=== PATIENT | male | born 1960 | race American Indian/Alaskan Native ===

== ENCOUNTER 2016-08-12 03:42 | Emergency (ER) | payer OTHER ==
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
[2016-08-12 05:46] VITALS: BP 158/78; PULSE 54; RESP 18; TEMP 97.7
[2016-08-12 05:56] VITALS: O2SAT 96
--- NOTE | 2016-08-12 08:50 | RAD ---
PROCEDURE: Radiographs of the Right Shoulder HISTORY: PAIN, INJURY COMPARISON: No prior. FINDINGS: BONES: Normal. No fracture. JOINTS: Preserved glenohumeral relationship, acromioclavicular degenerative change: Mild. SOFT TISSUES: Normal. OTHER FINDINGS: None. IMPRESSION: No acute findings related to/accounting for the clinical presentation. Concordant results with the preliminary interpretation rendered by the emergency department physician procedure.
== END 2016-08-12 05:48 | disposition home or self-care (01) ==
LOC: C.ER 03:42
DX: S43.401A Unspecified sprain of right shoulder joint, initial encounter (principal); Y04.0XXA Assault by unarmed brawl or fight, initial encounter; Y93.89 Activity, other specified; Y92.89 Other specified places as the place of occurrence of the external cause
CPT/HCPCS: 73030; 96372; 99285; J1885

== ENCOUNTER 2016-11-17 05:18 | Emergency (ER) | payer OTHER ==
[2016-11-17] MEDS ORDERED: Sodium Chloride 0.9% 1,000 ML IV ONE (05:56)
[2016-11-17] MEDS ORDERED: Sucralfate 1 gm/10 ml Oral Susp UD PO STA (05:57)
[2016-11-17] MEDS ORDERED: Iohexol 240 (50 ml) PO ONE (05:58)
--- NOTE | 2016-11-17 06:01 | C.PDOC ---
History Of Present Illness <Delroy Back R - Last Filed: 11/17/16 06:01> <ArlettejakeDoe E - Last Filed: 11/17/16 10:12> 56 year old male who presents to the ER with a complaint of a scattered diffuse abdominal pain, associated with nausea that began tonight. Denies vomiting, diarrhea, or dysuria. (Delroy Back) History Per: Patient History/Exam Limitations: no limitations Onset/Duration Of Symptoms: Hrs Current Symptoms Are (Timing): Still Present Radiation Of Pain To:: None Quality Of Discomfort: Unable To Describe Associated Symptoms: Nausea. denies: Vomiting, Diarrhea, Urinary Symptoms Exacerbating Factors: None Alleviating Factors: None Recent travel outside of the [place]: No <Delroy Back - Last Filed: 11/17/16 06:01> <Doe Alan E - Last Filed: 11/17/16 10:12> Chief Complaint (Nursing): Abdominal Pain Past Medical History Reviewed: Historical Data, Nursing Documentation, Vital Signs - Medical History PMH: Asthma, Bronchitis, HTN, Hypercholesterolemia Surgical History: No Surg Hx Family History: States: Unknown Family Hx - Social History Hx Tobacco Use: Yes Hx Alcohol Use: No Hx Substance Use: No - Immunization History Hx Tetanus Toxoid Vaccination: No Hx Influenza Vaccination: Yes (2015) Hx Pneumococcal Vaccination: No <Delroy Back - Last Filed: 11/17/16 06:01> Review Of Systems Constitutional: Negative for: Fever, Chills Gastrointestinal: Positive for: Nausea, Abdominal Pain. Negative for: Vomiting , Diarrhea Genitourinary: Negative for: Dysuria, Incontinence, Hematuria <Delroy Back - Last Filed: 11/17/16 06:01> Physical Exam - Physical Exam Appears: Non-toxic, Other (Mild distress) Skin: Normal Color, Warm, Dry Head: Atraumatic, Normacephalic Oral Mucosa: Moist Chest: Symmetrical, No Tenderness Cardiovascular: Rhythm Regular, No Murmur Respiratory: Normal Breath Sounds, No Rales, No Rhonchi, No Wheezing Gastrointestinal/Abdominal: Soft, Tenderness (Mid epigastric), No Guarding, No Rebound Neurological/Psych: Oriented x3, Normal Speech, Normal Cognition <Delroy Back - Last Filed: 11/17/16 06:01> ED Course And Treatment O2 Sat by Pulse Oximetry: 100 (Room air) Pulse Ox Interpretation: Normal Progress Note: CT abd/pel, blood work, and urinalysis ordered. Pepcid, carafate , and IV fluids administered. <Delroy Back - Last Filed: 11/17/16 06:01> - Laboratory Results Result Diagrams: 11/17/16 06:11 11/17/16 06:11 - CT Scan/US CT abd/pelvis Other Rad Studies (CT/US): Read By Radiologist, Radiology Report Reviewed CT/US Interpretation: IMPRESSION: 1. Questionable acute appendicitis. The appendix is present in the right lower quadrant abdomen lying lateral to a cecal bascule, seen on. images 108 through 122 of series 3. The appendix is enlarged with gas and fluid present within the. appendix. The distal tip of the appendix is seen on image 110 of series 3 measuring 10.1 mm in. overall diameter with a wall thickness of 4.3 mm. No marked periappendiceal inflammatory change or. fluid. No periappendiceal abscess or evidence of appendiceal rupture. 2. The cecal bascule lies in the midline low abdomen with questionable mild hypodense mucosal. thickening of the proximal large bowel involving the cecum, ascending, transverse and proximal. descending colonic segments suggestive of acute colitis versus underdistended large bowel giving. the artifactual appearance of mucosal thickening. No evidence of megacolon or colonic perforation. No evidence of significant ileus or bowel. obstruction. The small bowel appears grossly normal. 3. Questionable edema and/or inflammatory change present to a minimal degree in the. peripancreatic fat planes surrounding the atrophic and partially fatty-replaced pancreas. The. questionable edema and/or inflammatory change could be an artifact from volume averaging of the. atrophic pancreatic low ocasio with the surrounding fat. Recommend clinical correlation, however, for. any lab signs of acute pancreatitis. 4. A tiny periumbilical midline ventral hernia is present, containing fat only. Progress Note: Pt was signed out to me at 7am by Dr. Back to f/up CT abdomen/ pelvis. Pt feels much better. Abdominal pain resolved. Reassessment Condition: Improved <Doe Alan E - Last Filed: 11/17/16 10:12> Disposition <Delroy Back - Last Filed: 11/17/16 06:01> Discussed With DrFrancisco: Kaitlin Nickerson Comment: Pt was evaluated by the surgery resident who d/w Dr. Nickerson. They do not believe pt has acute appendicitis or any other surgical emergency and are recommending pt to be discharged home. Counseled Patient/Family Regarding: Studies Performed, Diagnosis, Need For Followup, Rx Given - Disposition Disposition Time: 10:10 <Doe Alan E - Last Filed: 11/17/16 10:12> - Disposition Referrals: Geronimo Mckeon MD [Primary Care Provider] - Disposition: HOME/ ROUTINE Condition: IMPROVED Additional Instructions: Follow up with your doctor within 1 week for further evaluation and treatment. Return to the ER if you develop fever, vomiting, pain in right lower side, worsening of symptoms or if you have any other concerns. Prescriptions: Famotidine [Pepcid] 20 mg PO BID #30 tab Instructions: Acute Abdominal Pain (ED) Forms: [employer] (Kyrgyz) - Clinical Impression Clinical Impression: Abdominal pain - Scribe Statement The provider has reviewed the documentation as recorded by the Scribe <Delroy Back - Last Filed: 11/17/16 06:01> <Doe Alan E - Last Filed: 11/17/16 10:12> - Scribe Statement Andrew Mcnamara All medical record entries made by the Scribe were at my direction and personally dictated by me. I have reviewed the chart and agree that the record accurately reflects my personal performance of the history, physical exam, medical decision making, and the department course for this patient. I have also personally directed, reviewed, and agree with the discharge instructions and disposition. (Delroy Back)
[2016-11-17] MEDS ORDERED: Sodium Chloride 0.9% 1,000 ML ONE (06:14)
[2016-11-17 06:15] LABS: BASO # 0.1 K/uL (0.0-0.2); BASO % 0.9 % (0.0-2.0); EOS # 0.2 K/uL (0.0-0.7); EOS % 2.3 % (0.0-4.0); HEMATOCRIT 36.2 % (35.0-51.0); LYMPH % 50.3 % (20.0-40.0); MEAN CORPUSCULAR HEMOGLOBIN 31.4 pg (27.0-31.0); MEAN CORPUSCULAR HGB CONC 33.1 g/dL (33.0-37.0); MONO # 0.7 K/uL (0.0-0.8); MONO % 8.8 % (0.0-10.0); NRBC % 0.1 % (0.0-2.0); RED CELL DISTRIBUTION WIDTH 14.4 % (11.5-14.5); WHITE BLOOD COUNT 7.9 K/uL (4.8-10.8)
[2016-11-17] MEDS ORDERED: Iohexol 240 (50 ml) ONE (06:15)
[2016-11-17 06:17] LABS: RBC URINE 2 /hpf (0-3); URINE BILIRUBIN NEGATIVE (NEGATIVE); URINE BLOOD NEGATIVE (NEGATIVE); URINE COLOR Yellow (YELLOW); URINE GLUCOSE (UA) NORMAL (Normal); URINE KETONE NEGATIVE (NEGATIVE); URINE LEUKOCYTE ESTERASE NEG Leu/uL (Negative); URINE PROTEIN NEGATIVE (NEGATIVE); URINE UROBILINOGEN NORMAL mg/dL (0.2-1.0); WBC URINE < 1 /hpf (0-5)
[2016-11-17 06:34] LABS: ALB/GLOB RATIO 1.5 (1.0-2.1); ALKALINE PHOSPHATASE 98 U/L (38-126); ALT/SGPT 33 U/L (21-72); AST/SGOT 28 U/L (17-59); BILIRUBIN,TOTAL 0.7 mg/dL (0.2-1.3); BLOOD UREA NITROGEN 13 mg/dL (9-20); CARBON DIOXIDE 25 mmol/L (22-30); CHLORIDE 102 mmol/L (98-107); GFR AFRICAN-AMERICAN > 60; GLUCOSE,RANDOM 104 mg/dL (75-110); POTASSIUM 3.8 mmol/L (3.6-5.2); SODIUM 137 mmol/L (132-148); TOTAL PROTEIN 6.8 g/dL (6.3-8.3)
[2016-11-17] MEDS ORDERED: Iodixanol 320 MG/ML 100 ML BOTTLE IV ONE (07:35)
[2016-11-17 10:15] VITALS: BP 152/90; PULSE 59; RESP 16; TEMP 98.2; O2SAT 100
--- NOTE | 2016-11-17 12:18 | CP.PCM.CON ---
History of Present Illness - History of Present Illness History of Present Illness: Surgery: Dr. Nickerson CC: muscle cramps HPI: Patient is a 56 y/o male w/ pmhx of HLD and asthma presents complaining of muscle cramping and abdominal pain since yesterday afternoon. 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 He reports limited po fluid intake. He then states the cramp progressed to his arms then had muscle cramps in his abdomen. He states he felt them more on the right then the left. He denies f/c/n/v. ED: Per report, patient had point tenderness in the RLQ on exam prompting CT scan. Patient given IV fluids and PEpcid in ED with resolution of symptoms. PMHx: HLD, asthma, rotator cuff pain left shoulder PSH: denies Social: hx of etoh, tobacco and drug use but states he no longer uses any of them Review of Systems - Review of Systems All systems: reviewed and no additional remarkable complaints except Review of Systems: unless stated in HPI Past Patient History - Infectious Disease Hx of Infectious Diseases: None - Past Social History Smoking Status: Former Smoker - CARDIAC Hx Hypercholesterolemia: Yes Hx Hypertension: Yes - PULMONARY Hx Asthma: Yes Hx Bronchitis: Yes - NEUROLOGICAL Hx Neurological Disorder: No - HEENT Hx HEENT Problems: No - RENAL Hx Chronic Kidney Disease: No - ENDOCRINE/METABOLIC Hx Endocrine Disorders: No - HEMATOLOGICAL/ONCOLOGICAL Hx Blood Disorders: No - INTEGUMENTARY Hx Dermatological Problems: No - MUSCULOSKELETAL/RHEUMATOLOGICAL Hx Musculoskeletal Disorders: No - GASTROINTESTINAL Hx Gastrointestinal Disorders: No - GENITOURINARY/GYNECOLOGICAL Hx Genitourinary Disorders: No - PSYCHIATRIC Hx Substance Use: No - SURGICAL HISTORY Hx Surgeries: No Hx Cardiac Catheterization: Yes (Mar 2014) - ANESTHESIA Hx Anesthesia: No Hx Anesthesia Reactions: No Meds Home Medications: Home Medication List Medication Instructions Recorded Confirmed Type Famotidine [Pepcid] 20 mg PO BID #30 tab 11/17/16 Rx Allergies/Adverse Reactions: Allergies Allergy/AdvReac Type Severity Reaction Status Date / Time No Known Allergies Allergy Verified 11/17/16 05:29 Physical Exam - Constitutional Appears: Non-toxic, No Acute Distress - Head Exam Head Exam: ATRAUMATIC, NORMOCEPHALIC - Eye Exam Eye Exam: EOMI, Normal appearance - ENT Exam ENT Exam: Mucous Membranes Moist - Respiratory Exam Respiratory Exam: NORMAL BREATHING PATTERN. absent: Respiratory Distress - Cardiovascular Exam Cardiovascular Exam: REGULAR RHYTHM. absent: Tachycardia - GI/Abdominal Exam GI & Abdominal Exam: Soft. absent: Distended, Guarding, Rebound, Rigid, Tenderness - Extremities Exam Extremities exam: Positive for: normal inspection. Negative for: calf tenderness - Neurological Exam Neurological exam: Alert, Oriented x3 - Psychiatric Exam Psychiatric exam: Normal Affect, Normal Mood - Skin Skin Exam: Dry, Normal Color, Warm Results - Vital Signs Recent Vital Signs: Last Vital Signs Temp 98.2 F 11/17/16 10:15 Pulse 59 L 11/17/16 10:15 Resp 16 11/17/16 10:15 BP 152/90 H 11/17/16 10:15 Pulse Ox 100 11/17/16 10:15 - Labs Result Diagrams: 11/17/16 06:11 11/17/16 06:11 Labs: Laboratory Results - last 24 hr 11/17/16 11/17/16 11/17/16 06:11 06:11 06:11 WBC 7.9 RBC 3.81 L Hgb 12.0 Hct 36.2 MCV 95.0 H D MCH 31.4 H MCHC 33.1 RDW 14.4 Plt Count 251 MPV 7.0 L Neut % (Auto) 37.7 L Lymph % (Auto) 50.3 H [place] % (Auto) 8.8 Eos % (Auto) 2.3 Baso % (Auto) 0.9 Neut # 3.0 Lymph # 4.0 Wetzel # 0.7 Eos # 0.2 Baso # 0.1 Sodium 137 Potassium 3.8 Chloride 102 Carbon Dioxide 25 Anion Gap 14 BUN 13 Creatinine 0.9 Est GFR ( Amer) > 60 Est GFR (Non-Af Amer) > 60 Random Glucose 104 Calcium 10.0 Total Bilirubin 0.7 AST 28 ALT 33 Alkaline Phosphatase 98 Total Protein 6.8 Albumin 4.1 Globulin 2.7 Albumin/Globulin Ratio 1.5 Lipase 41 Urine Color Yellow Urine Clarity Clear Urine pH 5.0 Ur Specific [place] 1.026 Urine Protein Negative Urine Glucose (UA) Normal Urine Ketones Negative Urine Blood Negative Urine Nitrate Negative Urine Bilirubin Negative Urine Urobilinogen Normal Ur Leukocyte Esterase Neg Urine WBC (Auto) < 1 Urine RBC (Auto) 2 - Impressions Impression: CT: appendix visualized w/ air in the lumen, no evidence of freeman-appendiceal inflammatory changes Assessment & Plan - Assessment and Plan (Free Text) Assessment: 56 y/o male w/ abdominal pain and muscle cramps most likely 2/2 dehydration Plan: -exam benign and given resolution of symptoms most likely not appendicitis -can be discharged home from surgical standpoint -return if symptoms worsen or persist -no surgical intervention at this time -encourage po fluid intake -d/w Dr. Nickerson and ED attending AKWhite PGY3
--- NOTE | 2016-11-17 15:32 | CT ---
PROCEDURE: CT Abdomen and Pelvis with contrast HISTORY: abd pain COMPARISON: None. TECHNIQUE: Contrast dose: Visipaque 320, 100 cc Radiation dose: Total exam DLP = 708 mGy-cm. This CT exam was performed using one or more of the following dose reduction techniques: Automated exposure control, adjustment of the mA and/or kV according to patient size, and/or use of iterative reconstruction technique. FINDINGS: LOWER THORAX: Cardiomegaly. No pleural or pericardial effusion. LIVER: Fatty liver without discrete mass or definite intrahepatic biliary dilatation. GALLBLADDER AND BILE DUCTS: Unremarkable. PANCREAS: Consider fat replaced in the periphery given lucent peripheral pattern related to the pancreas versus possible peripheral reactive change without fluid collection or typical pancreatitis pattern by CT. Clinically correlate SPLEEN: Unremarkable. ADRENALS: Unremarkable. No mass. KIDNEYS AND URETERS: Unremarkable. No hydronephrosis. No solid mass. VASCULATURE: Unremarkable. No aortic aneurysm. BOWEL: Moderate fecal loading is seen throughout the colon including the rectosigmoid. No obstruction. No gross mural thickening. APPENDIX: Majority appendix appears normal however the tail appears somewhat thick-walled with hazy peripheral margins potentially reflecting limited periappendiceal reaction. Clinically correlate for potential appendicitis at the tip of the appendix. Lack of oral contrast transit through the colon limits evaluation of the appendix. PERITONEUM: Unremarkable. No free fluid. No free air. LYMPH NODES: Unremarkable. No enlarged lymph nodes. BLADDER: Unremarkable. REPRODUCTIVE: Unremarkable. BONES: No acute fracture. OTHER FINDINGS: None. IMPRESSION: 1. Potential pancreatitis pattern although atypical pattern fat replaced as possible. Further clinical correlation is advised. No periappendiceal fluid collection or gross pancreatic duct dilatation is identified. No focal pancreatic mass. 2. The tibia the appendix appears inflamed therefore appendicitis is in question. Further clinical correlation is advised. 3. Tiny periumbilical midline ventral hernia containing only fat (not mentioned above). Concordant V rad preliminary report dated 11/17/2016.
== END 2016-11-17 10:15 | disposition home or self-care (01) ==
LOC: C.ER 05:18 → SUPCPDRO 05:18 → C.ER 10:15
DX: R10.84 Generalized abdominal pain (principal)
CPT/HCPCS: 74177; 80053; 81001; 83690; 85025; 96374; 99285; J7040; Q9966; Q9967

== ENCOUNTER 2016-12-26 06:13 | Day surgery (SDC) | payer OTHER ==
--- NOTE | 2016-12-26 09:07 | CP.SDSHP ---
Same Day Surgery H & P - History Proposed Procedure: egd. colonoscopy Pre-Op Diagnosis: heartburn. iron deficiency anemia. screening for colon cancer - Previous Medical/Surgical History Cardiac: Hypertension, Other (hyperlipidemia, ) Pulmonary: Asthma, Bronchitis Endocrine/Metabolic: Diabetes, Obesity Neuro: TIA/CVA Previous Surgical History: Rotator cuff repair. cardiac cath (neg 2014) - Allergies Allergies: Allergies No Known Allergies Allergy (Verified 12/26/16 06:51) - Physical Exam Vital Signs: Vital Signs 12/26/16 06:40 Temperature 97.1 F L Pulse Rate 55 L Respiratory 19 Rate Blood Pressure 146/87 O2 Sat by Pulse 99 Oximetry Mental Status: Alert & Oriented x3 Neuro: WNL Heart: WNL Lungs: WNL GI: WNL - Impression Impression: heartburn. iron deficiency anemia. screening for colon cancer Pt. Evaluated Today:Candidate for Anesthesia & Procedure: Yes - Date & Time Date: 12/26/16 Time: 09:07 Short Stay Discharge - Short Stay Discharge Admitting Diagnosis/Reason for Visit: ENCOUNTER FOR SCREENING, IRON DEFICIENCY ANEMIA, H Disposition: HOME/ ROUTINE
[2016-12-26] MEDS ORDERED: Propofol 10 mg/ml Inj (20 ML) ONE (09:11)
[2016-12-26] MEDS ORDERED: Lidocaine Hydrochloride 5 ML INJ ONE (09:12)
[2016-12-26] MEDS ORDERED: Lactated Ringer's 1,000 ML IV ONE (09:16)
[2016-12-26] MEDS ORDERED: Pantoprazole 40 mg EC Tab PO SCH (10:00)
[2016-12-26 10:13] VITALS: RESP 20
[2016-12-26 12:39] VITALS: BP 130/80; PULSE 49; TEMP 96.1; O2SAT 99
== END 2016-12-26 10:30 | disposition home or self-care (01) ==
LOC: C.ENDO 06:13
PROVIDERS: ATTEND Internal Medicine Gastroenterology
DX: K21.0 Gastro-esophageal reflux disease with esophagitis (principal); Z12.11 Encounter for screening for malignant neoplasm of colon; D50.9 Iron deficiency anemia, unspecified; K29.50 Unspecified chronic gastritis without bleeding; R12 Heartburn; K64.1 Second degree hemorrhoids; I10 Essential (primary) hypertension; E78.5 Hyperlipidemia, unspecified
CPT/HCPCS: 43239; 45378; 88305; J2704; J3010; J7120

== ENCOUNTER 2017-03-22 19:34 | Emergency (ER) | payer SELFPAY ==
[2017-03-22 19:48] VITALS: RESP 16; TEMP 97.3; O2SAT 98
--- NOTE | 2017-03-22 21:01 | C.PDOC ---
History Of Present Illness Pt BIBEMS for pain to right arm s/p fall. Pt reports that he slipped on the sidewalk and landed on left side injuring left shoulder and arm Time Seen by Provider: 03/22/17 20:09 Chief Complaint (Nursing): Upper Extremity Problem/Injury History Per: Patient History/Exam Limitations: no limitations Current Symptoms Are (Timing): Still Present Quality: Aching Severity: Moderate Pain Scale Rating Of: 7 Exacerbating Factor(s): Movement Past Medical History Vital Signs: Last Vital Signs Temp 97.3 F L 03/22/17 19:45 Pulse 63 03/22/17 19:45 Resp 16 03/22/17 19:45 BP 146/98 H 03/22/17 19:45 Pulse Ox 98 03/22/17 21:08 - Medical History PMH: Asthma, Bronchitis, HTN, Hypercholesterolemia, TIA Denies: Chronic Kidney Disease Family History: States: Unknown Family Hx - Social History Hx Tobacco Use: Yes Hx Alcohol Use: No Hx Substance Use: No - Immunization History Hx Tetanus Toxoid Vaccination: No Hx Influenza Vaccination: Yes (2015) Hx Pneumococcal Vaccination: No Review Of Systems Eyes: Positive for: Pain Musculoskeletal: Positive for: Shoulder Pain (left ) Neurological: Negative for: Weakness, Numbness Physical Exam - Physical Exam Appears: Well Head: Atraumatic Eye(s): bilateral: Normal Inspection, PERRL Extremity: No Normal ROM (limited due to pain), Tenderness (left anterior shoulder ), Capillary Refill (< 2 sec), No Deformity, No Swelling Extremity: Bilateral: Normal Color And Temperature Pulses: Left Radial: Normal, Right Radial: Normal Neurological/Psych: Oriented x3, Normal Motor, Normal Sensation Gait: Steady ED Course And Treatment O2 Sat by Pulse Oximetry: 98 Pulse Ox Interpretation: Normal - Other Rad Lt shoulder XR X-Ray: Interpreted by Me, Viewed By Me Interpretation: No fx or dislocation Progress Note: Motrin PO given, pt placed in sling and will follw up with PMD Disposition Counseled Patient/Family Regarding: Diagnosis - Disposition Disposition: HOME/ ROUTINE Disposition Time: 21:06 Condition: STABLE Additional Instructions: Take pain meds as directed Wear sling for support Return to ER if worse Prescriptions: Ibuprofen [Motrin] 600 mg PO Q6H #20 tab Instructions: Shoulder Sprain (ED) Forms: [employer] (Japanese) - Clinical Impression Clinical Impression: Shoulder sprain
[2017-03-22 21:13] VITALS: BP 145/85; PULSE 68
--- NOTE | 2017-03-23 10:15 | RAD ---
PROCEDURE: Radiographs of the Left Shoulder HISTORY: pain , fall COMPARISON: No prior. FINDINGS: BONES: Normal. No fracture. JOINTS: Normal. Glenohumeral and acromioclavicular joints preserved. No osteoarthritis. SOFT TISSUES: Normal. OTHER FINDINGS: None. IMPRESSION: No evidence of acute fracture or dislocation
== END 2017-03-22 21:13 | disposition home or self-care (01) ==
LOC: C.ER 19:34
DX: S43.402A Unspecified sprain of left shoulder joint, initial encounter (principal); W01.0XXA Fall on same level from slipping, tripping and stumbling without subsequent striking against object, initial encounter; Y92.480 Sidewalk as the place of occurrence of the external cause
CPT/HCPCS: 73030; 96372; 99284; J1885

== ENCOUNTER 2017-03-31 15:44 | Emergency (ER) | payer SELFPAY ==
[2017-03-31 15:56] VITALS: BMI 27.1
[2017-03-31 16:03] VITALS: RESP 18; TEMP 97.5
--- NOTE | 2017-03-31 16:26 | C.PDOC ---
History Of Present Illness 56 yr old male with PMHx of HTN and acid reflux, presents to the ER with complaints of abdominal pain starting early today. Patient states the pain is in the epigastric area and feels like gas. Denies fever, chills, nausea, vomiting, diarrhea, constipation or back pain. Time Seen by Provider: 03/31/17 16:16 Chief Complaint (Nursing): Abdominal Pain History Per: Patient History/Exam Limitations: no limitations Onset/Duration Of Symptoms: Sudden Onset (Early today) Current Symptoms Are (Timing): Still Present Location Of Pain/Discomfort: Epigastric Quality Of Discomfort: Gas Past Medical History Reviewed: Historical Data, Nursing Documentation, Vital Signs Vital Signs: Last Vital Signs Temp 97.5 F L 03/31/17 15:57 Pulse 59 L 03/31/17 17:12 Resp 18 03/31/17 17:12 BP 184/96 H 03/31/17 17:12 Pulse Ox 100 03/31/17 17:12 - Medical History PMH: Asthma, Bronchitis, HTN, Hypercholesterolemia, TIA Family History: States: No Known Family Hx - Social History Hx Tobacco Use: Yes Hx Alcohol Use: No Hx Substance Use: No - Immunization History Hx Tetanus Toxoid Vaccination: No Hx Influenza Vaccination: No Hx Pneumococcal Vaccination: No Review Of Systems Except As Marked, All Systems Reviewed And Found Negative. Constitutional: Negative for: Fever, Chills Gastrointestinal: Positive for: Abdominal Pain. Negative for: Nausea, Vomiting , Diarrhea, Constipation Musculoskeletal: Negative for: Back Pain Physical Exam - Physical Exam Appears: Non-toxic, No Acute Distress Skin: Warm, Dry, No Rash Head: Atraumatic, Normacephalic Oral Mucosa: Moist Respiratory: Normal Breath Sounds, No Rales, No Rhonchi, No Stridor, No Wheezing Gastrointestinal/Abdominal: Soft, Tenderness (epigastric), No Guarding, No Rebound Extremity: Normal ROM, No Swelling Neurological/Psych: Oriented x3, Normal Speech, Normal Motor ED Course And Treatment - Laboratory Results Result Diagrams: 03/31/17 16:46 03/31/17 16:46 O2 Sat by Pulse Oximetry: 99 (RA) Pulse Ox Interpretation: Normal Medical Decision Making Medical Decision Making: abdominal pain - consider gastrits, pud, gerd, atypical cardiac PLAN: * CXR * EKG * Troponin * CBC * CMP * Urinalysis * Protonix IVP * Zofran IVP ekg sinus cara [address] jada feliciano no interval change from previous. 620: pt reassesed states pain resolved. requested pt to remain in er for 2nd trop, although symptoms atypical. 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 return precautions advised. Disposition - Disposition Referrals: Rao Heart MD [Staff Provider] - Disposition: HOME/ ROUTINE Disposition Time: 18:18 Condition: STABLE Additional Instructions: return to er with worsening symptoms or concerns. please see specialist. Prescriptions: Famotidine [Pepcid] 20 mg PO DAILY #20 tab Instructions: Acute Abdominal Pain (DC) Forms: [employer] (Georgian) - Clinical Impression Clinical Impression: Abdominal pain - Scribe Statement The provider has reviewed the documentation as recorded by the Ivonneibe Erika Snyder Provider Attestation: All medical record entries made by the Scribe were at my direction and personally dictated by me. I have reviewed the chart and agree that the record accurately reflects my personal performance of the history, physical exam, medical decision making, and the department course for this patient. I have also personally directed, reviewed, and agree with the discharge instructions and disposition.
[2017-03-31 16:50] LABS: BASO % 0.7 % (0.0-2.0); EOS # 0.2 K/uL (0.0-0.7); EOS % 2.7 % (0.0-4.0); LYMPH # 3.1 K/uL (1.0-4.3); LYMPH % 52.5 % (20.0-40.0); MEAN CELL VOLUME 94.9 fL (80.0-94.0); MEAN CORPUSCULAR HEMOGLOBIN 31.5 pg (27.0-31.0); MEAN CORPUSCULAR HGB CONC 33.2 g/dL (33.0-37.0); MEAN PLATELET VOLUME 7.4 fL (7.2-11.7); MONO # 0.5 K/uL (0.0-0.8); MONO % 8.6 % (0.0-10.0); NEUT # 2.1 K/uL (1.8-7.0); NEUT % 35.5 % (50.0-75.0); RBC 3.82 Mil/uL (4.40-5.90); RED CELL DISTRIBUTION WIDTH 14.1 % (11.5-14.5); WHITE BLOOD COUNT 5.9 K/uL (4.8-10.8)
[2017-03-31 16:57] LABS: PROTHROMBIN TIME 10.7 SECONDS (9.7-12.2)
[2017-03-31 17:03] LABS: SQUAMOUS EPITHIAL < 1 /hpf (0-5); URINE BILIRUBIN NEGATIVE (NEGATIVE); URINE BLOOD NEGATIVE (NEGATIVE); URINE CLARITY Clear (Clear); URINE COLOR Straw (YELLOW); URINE GLUCOSE (UA) NORMAL (Normal); URINE LEUKOCYTE ESTERASE NEG Leu/uL (Negative); URINE NITRATE NEGATIVE (NEGATIVE); URINE PROTEIN NEGATIVE (NEGATIVE); URINE UROBILINOGEN NORMAL mg/dL (0.2-1.0)
[2017-03-31 17:12] LABS: ALB/GLOB RATIO 1.4 (1.0-2.1); ALBUMIN 4.1 g/dL (3.5-5.0); ALT/SGPT 24 U/L (21-72); AST/SGOT 25 U/L (17-59); BLOOD UREA NITROGEN 8 mg/dL (9-20); CALCIUM 9.2 mg/dl (8.6-10.4); GFR AFRICAN-AMERICAN > 60; GFR NON-AFRICAN AMERICAN > 60; LIPASE 49 U/L (23-300)
--- NOTE | 2017-03-31 17:19 | RAD ---
HISTORY: Abdominal pain. COMPARISON: 12/20/2014. TECHNIQUE: Chest PA and lateral FINDINGS: LUNGS: No active pulmonary disease. PLEURA: No significant pleural effusion identified. No pneumothorax apparent. CARDIOVASCULAR: No radiographic findings to suggest acute or significant cardiovascular disease. OSSEOUS STRUCTURES: No significant abnormalities. VISUALIZED UPPER ABDOMEN: Normal. OTHER FINDINGS: None. IMPRESSION: No active disease. No significant interval change compared to the prior examination(s).
[2017-03-31 18:25] VITALS: BP 154/75; PULSE 58; O2SAT 97
--- NOTE | 2017-04-01 22:18 | CARD ---
APPROVED REPORT EKG Measurement Heart [id number] IN [id number] <Conclusion> Sinus bradycardia Nonspecific ST and T wave abnormality Abnormal ECG
== END 2017-03-31 18:30 | disposition home or self-care (01) ==
LOC: C.ER 15:44
DX: R10.9 Unspecified abdominal pain (principal); E78.00 Pure hypercholesterolemia, unspecified; I10 Essential (primary) hypertension; Z86.73 Personal history of transient ischemic attack (TIA), and cerebral infarction without residual deficits; Z87.891 Personal history of nicotine dependence
CPT/HCPCS: 71046; 80053; 81001; 83690; 84484; 85025; 85610; 85730; 93005; 96374; 96375; 99285; C9113; J2405

== ENCOUNTER 2017-05-04 19:39 | Emergency (ER) | payer MEDICAID, OTHER ==
[2017-05-04 19:39] VITALS: BMI 27.1
[2017-05-04 19:52] VITALS: TEMP 97.9; O2SAT 99
--- NOTE | 2017-05-04 20:31 | C.PDOC ---
Time Seen by Provider: 05/04/17 20:24 Chief Complaint (Nursing): Shortness Of Breath Past Medical History Vital Signs: Last Vital Signs Temp 97.9 F 05/04/17 19:51 Pulse 61 05/04/17 19:51 Resp 20 05/04/17 19:56 BP 150/90 05/04/17 19:51 Pulse Ox 99 05/04/17 19:56 - Medical History PMH: Asthma, Bronchitis, HTN, Hypercholesterolemia, TIA Denies: Chronic Kidney Disease Family History: States: Unknown Family Hx - Social History Hx Tobacco Use: Yes Hx Alcohol Use: No Hx Substance Use: No - Immunization History Hx Tetanus Toxoid Vaccination: No Hx Influenza Vaccination: No Hx Pneumococcal Vaccination: No ED Course And Treatment O2 Sat by Pulse Oximetry: 99 Medical Decision Making Medical Decision Making: clear lungs no wheezing declines w/u w informed consent. multiple recent evals without sig findings other than mild anemia pt defers w/u with informed consent. opt f/u ok. pepcid given on request no nebs given as no sob, no wheezing. Disposition Doctor Will See Patient In The: Office Counseled Patient/Family Regarding: Studies Performed, Diagnosis - Disposition Disposition: HOME/ ROUTINE Disposition Time: 20:31 Condition: GOOD Forms: [email or web address] (Icelandic) - Clinical Impression Clinical Impression: Dry mouth, unspecified
[2017-05-04 20:42] VITALS: BP 137/89; PULSE 60; RESP 18
--- NOTE | 2017-05-06 22:24 | CARD ---
APPROVED REPORT EKG Measurement Heart [id number] NM 158P47 [id number] <Conclusion> Sinus bradycardia Nonspecific ST and T wave abnormality Abnormal ECG
== END 2017-05-04 20:49 | disposition home or self-care (01) ==
LOC: C.ER 19:39
DX: R68.2 Dry mouth, unspecified (principal); I10 Essential (primary) hypertension; Z87.891 Personal history of nicotine dependence